=== PATIENT | female | born 1950 ===

== ENCOUNTER 2018-10-13 09:11 | Outpatient (CLI) | payer OTHER ==
[~2018-10-13] VITALS: Ht 154.9 cm; Wt 89.4 kg
[2018-10-13] MEDS ORDERED: FLONASE16 GM NASAL (11:51)
== END 2018-10-13 09:20 | disposition home or self-care (01) ==
LOC: OFIC 805 09:11
DX: H93.13 Tinnitus, bilateral (principal); H91.8X3 Other specified hearing loss, bilateral; J31.0 Chronic rhinitis; R49.8 Other voice and resonance disorders; R05 Cough